=== PATIENT | male | born 1990 | race Caucasian/White ===

== ENCOUNTER 2017-03-25 17:31 | Emergency (ER) | payer OTHER | END 2017-03-25 22:38 | disposition home or self-care (01) | LOC: D.ER 17:31 | DX: S91.112A Laceration without foreign body of left great toe without damage to nail, initial encounter (principal); X58.XXXA Exposure to other specified factors, initial encounter; Y93.89 Activity, other specified; Y92.89 Other specified places as the place of occurrence of the external cause; S97.112A Crushing injury of left great toe, initial encounter; F17.200 Nicotine dependence, unspecified, uncomplicated ==

== ENCOUNTER 2020-03-03 15:42 | Observation (INO) | payer OTHER ==
[~2020-03-03] VITALS: Ht 177.8 cm; Wt 75.0 kg
[2020-03-03 15:57] LABS: BASOPHILS 0.6 % (0-2); EOSINOPHILS 1.1 % (0-7); HEMATOCRIT 45.9 % (42.0-54.0); HEMOGLOBIN 15.3 g/dL (13.5-17.5); IMMATURE GRANULOCYTES 0.1 % (0-5); LYMPHOCYTES 41.3 % (15-50); MCH 30.2 pg (26.0-34.0); MCHC 33.3 g/dL (31.0-37.0); MCV 90.7 fL (80.0-100.0); MONOCYTES 8.3 % (2-11); NEUTROPHILS 48.6 % (40-80); PLATELET COUNT 344 10x3/uL (130-400); RBC 5.06 10x6/uL (4.20-6.10); RDW 12.8 % (11.5-14.5); WBC 7.2 10x3/uL (4.8-10.8)
[2020-03-03 16:06] LABS: ANION GAP 19.7 mmol/L (8-16); CALCIUM 9.2 mg/dL (8.5-10.1); CARBON DIOXIDE 21.2 mmol/L (21.0-32.0); CREATININE - SERUM 1.8 mg/dL (0.6-1.3); POTASSIUM - SERUM 3.9 mmol/L (3.5-5.1)
[2020-03-03 16:11] LABS: ALBUMIN 4.4 g/dL (3.4-5.0); BILIRUBIN - TOTAL 0.44 mg/dL (0.2-1.3); PROTEIN - SERUM 8.2 g/dL (6.4-8.2)
[2020-03-03 16:19] LABS: INR 0.97 (0.85-1.17); PROTIME 12.9 SECONDS (11.6-15.0)
--- NOTE | 2020-03-03 16:37 | NUR ---
Ancef infusion complete at this time.
--- NOTE | 2020-03-03 17:03 | NUR ---
PRESSURE DRESSING WITH GAUZE AND EDUARDO WRAP APPLIED.
[2020-03-03 18:00] VITALS: BP 117/58; Ht 177.8 cm; Wt 75.0 kg
[2020-03-03] MEDS ORDERED: HYDROCODON-ACE1 EA10 PO ×2 (19:37→19:39)
--- NOTE | 2020-03-03 21:00 | NUR ---
RECIEVED BACK TO ROOM FROM RECOVERY, ALERT AND ORIENTIATED, EDUARDO WRAP DRESSING INTACT TO LEFT HAND AND FOREARM, FINGERS PINK AND WARM, DISCUSSED DISCHARGE ORDERS WITH PT AND FAMILY FOR WHEN AWAKE AND ABLE TO EAT AND VOID
--- NOTE | 2020-03-03 23:15 | NUR ---
IV DC'D DISCHARGE INSTRUCTIONS GIVEN PERCRIPTIONS GIVEN, SLING PLACED ON LEFT ARM, EDUARDO WRAP DRESSING INTACT NO DRAINAGE NOTED, HAS EATEN AND DRANK WITHOUT NAUSEA, UP TO BATHROOM AND VOIDED 400CC YELLOW URINE, DISCHARGED HOME WITH FAMILY VIA W/C
--- NOTE | 2020-03-06 11:34 | OP ---
PATIENT NAME: ANNALEE HARVEY MEDICAL RECORD: [id number] :88 LOCATION:D.M3 D.1206 ADMISSION DATE:03/03/20 SURGEON: ROXANNA INTERIANO MD DATE OF OPERATION: 03/03/2020 PREOPERATIVE DIAGNOSES: Traumatic chainsaw injury to the left wrist to include arterial injury, neurovascular nerve injury as well as extensor injury and open wound including bone. POSTOPERATIVE DIAGNOSES: Traumatic chainsaw injury to the left wrist to include arterial injury, neurovascular nerve injury as well as extensor injury and open wound including bone. PROCEDURES: 1. Excisional debridement of open chainsaw wound to include skin, subcutaneous tissue, portions of fat, fascia, muscle and bone. 2. Extensor tendon repair. 3. Ligation of princeps pollicis artery. SURGEON: Roxanna Interiano MD HEAD COUNSELOR: RUPESH Smith INTRAOPERATIVE COMPLICATIONS: Essentially none. SUMMARY OF PATHOLOGIC FINDINGS: The chainsaw had essentially disrupted the neurovascular bundle to a point of non-reparation. The extensor EHL was identified and was repairable albeit somewhat shortened. The injury did include portions of the second carpometacarpal joint as well as the first carpometacarpal joint; however, only a small portion of bone was taken away. No internal fixation was needed, only debridement. OPERATIVE SUMMARY IN DETAIL: After obtaining the appropriate preoperative orthopedic surgery consent as well as anesthetic consultation, evaluation and clearance, the patient was brought to the operating room and placed on the operating table in a supine position. After adequate general laryngeal mask airway was administered, tourniquet was placed about the proximal aspect of the patient's left upper extremity. It was put up prior to prepping and draping as the patient did have arterial bleeding. The patient's arm was elevated and the tourniquet was elevated to 250 mmHg. At this point, sterile prep and drape was performed in order to decrease blood loss. Appropriate timeout was taken and agreed upon by all. Irrigation was first done followed by exploration of the wound and the patient did have foreign vegetation material as well as what appeared to be paint chips. These were all removed. In the proximal aspect of the princeps pollicis was found and high ligated with 0 silk tie. Both ends of the EHL were found in a Aguirre suture and a #2-0 FiberWire was placed and then the EHL was tied together with the [place] knots buried in the middle of the tendon. Having completed this, a 6-0 Prolene paratenon repair was done circumferentially about the tendon while the tendon was held in extension. The patient's terminal aspect of the superficial branch of the radial nerve was identified distally; however, it was not identified proximally. It was in very poor condition. Further irrigation was then followed by closure of the wound with 2-0 Vicryl followed by 4-0 Prolene. The patient's hand was splinted with a thumb spica with the DIP joint in extension to try and protect the patient's repair. It is of note, prior to terminal closure the tourniquet was deflated to OPERATIVE REPORT [id number] ANNALEE HARVEY check for any accessory bleeding and the patient only had venous ooze. Again, after the wound was closed, thumb spica was placed. The patient was then awakened and taken to recovery room in stable condition. All final needle and sponge counts were correct. TRANSINT:[id number] Voice Confirmation ID: [id number] DOCUMENT ID: [id number] JAYDON ALVAREZ, ROXANNA MANCINI at 1134 CC: [id number] DICTATION DATE: 03/05/20 1121 REGULATORY LEADER: 03/05/20 1715 DIS IN 03/03/20 [facility] [address] [place] [address]
== END 2020-03-03 23:15 | disposition home or self-care (01) ==
LOC: D.ER 15:42 → D.M3 16:53 → OBSVTIME 19:00 → D.M3 23:15
PROVIDERS: Emergency Medicine; ADMIT Orthopaedic Surgery; ATTEND Orthopaedic Surgery
DX: S66.222A Laceration of extensor muscle, fascia and tendon of left thumb at wrist and hand level, initial encounter (principal); W29.3XXA Contact with powered garden and outdoor hand tools and machinery, initial encounter